=== PATIENT | male | born 1960 | race Two or more races ===

== ENCOUNTER 2017-07-14 16:02 | Emergency (ER) | payer SELFPAY ==
[2017-07-14 16:29] LABS: BASOPHILS 0.2 % (0-2); EOSINOPHILS 0.2 % (0-7); HEMATOCRIT 42.8 % (42.0-54.0); HEMOGLOBIN 14.5 g/dL (13.5-17.5); IMMATURE GRANULOCYTES 0.1 % (0-5); LYMPHOCYTES 14.7 % (15-50); MCH 31.6 pg (26.0-34.0); MCHC 33.9 g/dL (31.0-37.0); MCV 93.2 fL (80.0-100.0); MEAN PLATELET VOLUME 9.6 fL (7.4-10.4); MONOCYTES 10.3 % (2-11); NEUTROPHILS 74.5 % (40-80); PLATELET COUNT 245 10x3/uL (130-400); RBC 4.59 10x6/uL (4.20-6.10); RDW 12.6 % (11.5-14.5); WBC 8.4 10x3/uL (4.8-10.8)
[2017-07-14 16:54] LABS: ALBUMIN 4.5 g/dL (3.4-5.0); ALKALINE PHOSPHATASE 15 U/L (46-116); ALT (SGPT) 51 U/L (10-68); CALC OSMOLALITY 281 mosm/kg (275-300); CALCIUM 9.3 mg/dL (8.5-10.1); CHLORIDE - SERUM 104 mmol/L (98-107); CREATININE - SERUM 1.1 mg/dL (0.6-1.3); GLUCOSE 103 mg/dL (74-106); POTASSIUM - SERUM 3.7 mmol/L (3.5-5.1); PROTEIN - SERUM 7.6 g/dL (6.4-8.2); SODIUM 142 mmol/L (136-145); UREA NITROGEN 9 mg/dL (7-18); eGFR NON AFRICAN AMERICAN 74 mL/min (90-120)
[2017-07-14 17:05] LABS: CKMB 2.1 U/L (0.0-3.6); CREATINE KINASE 529 UL (21-232); TROPONIN-I < 0.017 ng/mL (0.000-0.060)
== END 2017-07-14 18:40 | disposition left against medical advice (07) ==
LOC: D.ER 16:02
PROVIDERS: Emergency Medicine
DX: R07.9 Chest pain, unspecified (principal); I10 Essential (primary) hypertension; Z86.59 Personal history of other mental and behavioral disorders